=== PATIENT | female | born 1980 | race Caucasian/White ===

== ENCOUNTER 2016-08-17 17:03 | Emergency (ER) | payer OTHER ==
[2016-08-17 17:17] VITALS: RESP 16
[2016-08-17] MEDS ORDERED: SODIUM CHLORIDE 0.9% 2,000 ML IV STA (17:38)
[2016-08-17] MEDS ORDERED: PROMETHAZINE 25 MG TAB PO STA (17:39)
--- NOTE | 2016-08-17 17:48 | ED ---
Nausea/Vomiting/Diarrhea HPI - General Chief complaint: Nausea/Vomiting/Diarrhea Stated complaint: 7wks /dehydration Time Seen by Provider: 08/17/16 17:20 Source: patient Mode of arrival: ambulatory Limitations: no limitations - History of Present Illness Initial comments: The patient is a 35-year-old female who presents to ED with a chief complaint of nausea and vomiting. Patient states that her nausea and vomiting been present over the course of her . Patient states that her last menstrual period was at the beginning of June. She estimates that she is proximally 7 weeks . Patient follows with Dr. Uriostegui (sp?) as her OBGYN. The patient has been taking Reglan to control her nausea and vomiting of , but it has been ineffective at completely controlling her symptoms. She states that she followed up with her SUPERVISOR SAMPLE just 2 days ago and received an ultrasound that demonstrated evidence of an IUP with normal heart tones. Patient states that there are many smells that annoy her provoke her symptoms. She states that she has never had nausea and vomiting of as severe as with this current . Patient cites trace abdominal earning sensation in the epigastric region as well as burning throughout the throat, thought to be secondary to her frequent episodes of emesis. Patient denies any vaginal bleeding. Denies any vaginal discharge. States that she's been urinating about twice a day. - Related Data Previous Rx's Medication Instructions Recorded Nitrofurantoin Monohyd/M-Cryst 100 mg PO BID #10 cap 08/17/16 [Macrobid] Promethazine Suppository 25 mg RECTAL QID #30 supp 08/17/16 [Phenergan] Promethazine [Phenergan] 25 mg PO Q6HR #30 tablet 08/17/16 Allergies Allergy/AdvReac Type Severity Reaction Status Date / Time No Known Allergies Allergy Verified 08/17/16 17:32 Review of Systems ROS Statement: Those systems with pertinent positive or pertinent negative responses have been documented in the HPI. ROS Other: All systems not noted in ROS Statement are negative. Constitutional: Denies: fever, chills, weakness, weight change Eyes: Denies: eye pain ENT: Denies: ear pain, throat pain, dental pain, epistaxis Respiratory: Denies: cough, dyspnea, wheezes, hemoptysis Cardiovascular: Denies: chest pain, palpitations, dyspnea on exertion Endocrine: Reports: fatigue Gastrointestinal: Reports: abdominal pain (epigastric), nausea, vomiting. Denies: diarrhea, constipation, hematemesis, melena Genitourinary: Reports: other (decreased frequency of urination). Denies: urgency, dysuria, frequency, hematuria, discharge Musculoskeletal: Denies: back pain Skin: Denies: rash, lesions Neurological: Denies: headache, weakness, numbness, paresthesias Past Medical History Past Medical History: Asthma History of Any Multi-Drug Resistant Organisms: None Reported Past Surgical History: No Surgical Hx Reported Additional Past Surgical History / Comment(s): D&C 2012 Past Anesthesia/Blood Transfusion Reactions: No Reported Reaction Past Psychological History: No Psychological Hx Reported Smoking Status: Former smoker Past Alcohol Use History: None Reported Past Drug Use History: None Reported General Exam Limitations: no limitations General appearance: alert, in no apparent distress Head exam: Present: atraumatic, normocephalic Eye exam: Present: normal appearance, PERRL, EOMI. Absent: scleral icterus, conjunctival injection Pupils: Present: normal accommodation ENT exam: Present: normal exam, mucous membranes dry Neck exam: Present: normal inspection Respiratory exam: Present: normal lung sounds bilaterally. Absent: respiratory distress, wheezes, rales, rhonchi, stridor Cardiovascular Exam: Present: normal rhythm, tachycardia GI/Abdominal exam: Present: soft. Absent: distended, tenderness, guarding, rebound Extremities exam: Present: normal inspection, full ROM Back exam: Present: normal inspection, full ROM Neurological exam: Present: alert, oriented X3 Psychiatric exam: Present: normal affect, normal mood Skin exam: Present: warm, dry, intact Course Vital Signs 08/17/16 08/17/16 17:14 21:35 Temperature 98.2 F 98.6 F Pulse Rate 85 82 Respiratory 16 16 Rate Blood Pressure 119/67 108/55 O2 Sat by Pulse 99 100 Oximetry Medical Decision Making - Medical Decision Making Patient is a 35-year-old female who presents to ED with a chief complaint of nausea and vomiting. Patient is a at approximately 7 weeks of . Patient was treated with Reglan initially by her SUPERVISOR [facility]. Had an ultrasound performed yesterday that demonstrated normal heart tones. Will hydrate patient with 2 L of IV fluids here in the ED. We'll check CBC, BMP, mag. Check UA and urine cultures well. Provide patient with Phenergan to see if this helps with her symptoms. By mouth challenge after provided with this medication. 7:02 PM Patient states that she is still feeling nauseous. Will provide with a dose of Benadryl IVP. 9:[address] Chisholm, who is covering [facility] She recommended Tigan IM as well as D5LR. The patient's nausea improved prior to the time that Tigan was offered. As such, it was not given. The patient noted improvement on D5LR. Patient able to tolerate PO. The patient will be discharged home at this point in time. Will discharge patient home with prescriptions for Phenergan by mouth as well as Phenergan suppository. I counseled the patient that if she is having extreme nausea and vomiting and is unable to tolerate Phenergan PO that she can use the suppository. I am also discharging the patient with a prescription for Macrobid given that she had bacteriuria and foul-smelling urine. I have encouraged the patient to follow up with Dr. Almaguer's office within the next week for further re-evaluation. Encourage the patient that she can return to the ED should her symptoms worsen. - Lab Data Result diagrams: 08/17/16 17:48 08/17/16 17:48 Lab Results 08/17/16 08/17/16 08/17/16 Range/Units 17:48 17:48 17:48 WBC 10.8 H (3.8-10.6) k/uL RBC 4.64 (3.80-5.40) m/uL Hgb 13.6 (11.4-16.0) gm/dL Hct 38.9 (34.0-46.0) % MCV 83.7 (80.0-100.0) fL MCH 29.4 (25.0-35.0) pg MCHC 35.1 (31.0-37.0) g/dL RDW 12.7 (11.5-15.5) % Plt Count 274 (150-450) k/uL Neutrophils % 86 % Lymphocytes % 9 % Monocytes % 4 % Eosinophils % 1 % Basophils % 0 % Neutrophils # 9.2 H (1.3-7.7) k/uL Lymphocytes # 0.9 L (1.0-4.8) k/uL Monocytes # 0.4 (0-1.0) k/uL Eosinophils # 0.1 (0-0.7) k/uL Basophils # 0.0 (0-0.2) k/uL Sodium 138 (137-145) mmol/L Potassium 4.1 (3.5-5.1) mmol/L Chloride 102 (98-107) mmol/L Carbon Dioxide 24 (22-30) mmol/L Anion Gap 12 mmol/L BUN 14 (7-17) mg/dL Creatinine 0.55 (0.52-1.04) mg/dL Est GFR (MDRD) Af Amer >60 (>60 ml/min/1.73 sqM) Est GFR (MDRD) Non-Af >60 (>60 ml/min/1.73 sqM) Glucose 85 (74-99) mg/dL Calcium 9.4 (8.4-10.2) mg/dL Magnesium 2.0 (1.6-2.3) mg/dL Urine Color Yellow Urine Appearance Cloudy H (Clear) Urine pH 6.5 (5.0-8.0) Ur Specific [place] 1.020 (1.001-1.035) Urine Protein Trace H (Negative) Urine Glucose (UA) Negative (Negative) Urine Ketones 2+ H (Negative) Urine Blood Negative (Negative) Urine Nitrite Negative (Negative) Urine Bilirubin Negative (Negative) Urine Urobilinogen <2.0 (<2.0) mg/dL Ur Leukocyte Esterase Large H (Negative) Urine RBC 3 (0-5) /hpf Urine WBC 3 (0-5) /hpf Ur Squamous Epith Cells 19 H (0-4) /hpf Urine Bacteria Many H (None) /hpf Urine Mucus Many H (None) /hpf Disposition Clinical Impression: Nausea and vomiting during prior to 22 weeks gestation Disposition: HOME SELF-CARE Condition: Good Instructions: Acute Nausea and Vomiting (ED) Prescriptions: Nitrofurantoin Monohyd/M-Cryst [Macrobid] 100 mg PO BID #10 cap Promethazine [Phenergan] 25 mg PO Q6HR #30 tablet Promethazine Suppository [Phenergan] 25 mg RECTAL QID #30 supp Referrals: None,Stated [Primary Care Provider] - 1-2 days Time of Disposition: 21:22
[2016-08-17 18:14] LABS: Basophils % (A) 0 %; CH 29.4; CHCM 35.3; Eosinophils # (A) 0.1 k/uL (0-0.7); Eosinophils % (A) 1 %; HCT 38.9 % (34.0-46.0); HGB 13.6 gm/dL (11.4-16.0); Luc # (Auto) 0.13; Luc % (Auto) 1; Lymphocytes # (A) 0.9 k/uL (1.0-4.8); Lymphocytes % (A) 9 %; MCH 29.4 pg (25.0-35.0); MCHC 35.1 g/dL (31.0-37.0); MCV 83.7 fL (80.0-100.0); Mean Platelet Volume 7.3; Monocytes # (A) 0.4 k/uL (0-1.0); Monocytes % (A) 4 %; Neutrophils # (A) 9.2 k/uL (1.3-7.7); Neutrophils % (A) 86 %; RBC 4.64 m/uL (3.80-5.40); RDW 12.7 % (11.5-15.5); WBC 10.8 k/uL (3.8-10.6); WBC (Perox) 11.57
[2016-08-17 18:16] LABS: Appearance,Urine Cloudy (Clear); Bacteria,Urine Many /hpf; Bilirubin,Urine Negative (Negative); Glucose,Urine (UA) Negative (Negative); Ketones,Urine 2+ (Negative); Leukocyte Esterase,Urine Large (Negative); Mucus,Urine Many /hpf; Nitrite,Urine Negative (Negative); PH, Urine 6.5 (5.0-8.0); Particle Count 21686; Protein,Urine Trace (Negative); RBC,Urine 3 /hpf (0-5); Squamous Epithelial Cell,Urine 19 /hpf (0-4); UA Billing (MACRO vs. MICRO) MICRO; Urobilinogen,Urine <2.0 mg/dL (<2.0); WBC,Urine 3 /hpf (0-5)
[2016-08-17 18:22] LABS: Anion Gap 12 mmol/L; Blood Urea Nitrogen 14 mg/dL (7-17); Calcium 9.4 mg/dL (8.4-10.2); Carbon Dioxide 24 mmol/L (22-30); Chloride 102 mmol/L (98-107); Glucose 85 mg/dL (74-99); Non-African American GFR(MDRD) >60 (>60 ml/min/1.73 sqM); Potassium 4.1 mmol/L (3.5-5.1); Sodium 138 mmol/L (137-145)
[2016-08-17] MEDS ORDERED: MAG HYDROX/AL HYDROX/SIMETH 30 ML CUP PO STA (18:59)
[2016-08-17] MEDS ORDERED: diphenhydrAMINE 50 MG/ML 1 ML VIAL IVP STA (18:59)
[2016-08-17] MEDS ORDERED: TRIMETHOBENZAMIDE 100 MG/ML 2 ML VIAL IM STA (19:48)
[2016-08-17] MEDS ORDERED: DEXTROSE 5%-LACTATED RINGERS 1,000 ML IV SCH (20:30)
[2016-08-17 21:35] VITALS: BP 108/55; PULSE 82; TEMP 98.6
== END 2016-08-17 21:39 | disposition home or self-care (01) ==
LOC: EC 17:03
DX: O21.9 Vomiting of pregnancy, unspecified (principal); Z3A.01 Less than 8 weeks gestation of pregnancy; Z87.891 Personal history of nicotine dependence
CPT/HCPCS: 99284; 96374; 96361 ×2; 36415; 80048; 83735; 85025; 81001; 87086; J1200

== ENCOUNTER 2016-08-29 16:07 | Emergency (ER) | payer OTHER ==
[2016-08-29 16:28] VITALS: RESP 18
[2016-08-29] MEDS ORDERED: SODIUM CHLORIDE 0.9% 1,000 ML IV STA (18:00)
[2016-08-29] MEDS ORDERED: diphenhydrAMINE 50 MG/ML 1 ML VIAL IVP STA (18:00)
[2016-08-29] MEDS ORDERED: METOCLOPRAMIDE 5 MG/ML 2 ML VIAL IVP STA (18:00)
--- NOTE | 2016-08-29 18:01 | ED ---
General Adult HPI - General Chief complaint: Nausea/Vomiting/Diarrhea Stated complaint: 9 weeks /Vomiting Time Seen by Provider: 08/29/16 17:46 Source: patient, RN notes reviewed, old records reviewed Mode of arrival: ambulatory Limitations: no limitations - History of Present Illness Initial comments: Patient 35-year-old female who presents emergency room today with a chief complaint of symptoms of nausea vomiting on and off for last few weeks. She admits that she is 9 weeks . She states that she has been seen here in the emergency room for symptoms of nausea vomiting recently. She states she's having difficult time keeping anything down. She states that she's tried medicines of Zofran, Reglan, Phenergan. She states she did not try any increase today because she cannot keep them down. She denies any abdominal pain. Denies any vaginal bleeding or discharge. Denies any other complaints. Patient denies any recent fever, chills, shortness of breath, chest pain, back pain, abdominal pain, numbness or tingling, dysuria or hematuria, constipation or diarrhea, headaches or visual changes, or any other complaints. - Related Data Home Medications Medication Instructions Recorded Confirmed Albuterol Inhaler [Ventolin Hfa 1 - 2 puff INHALATION RT-Q6H PRN 08/29/16 Inhaler] Allergies Allergy/AdvReac Type Severity Reaction Status Date / Time hydrocodone AdvReac Severe Nausea & Verified 08/29/16 18:02 Vomiting Review of Systems ROS Statement: Those systems with pertinent positive or pertinent negative responses have been documented in the HPI. ROS Other: All systems not noted in ROS Statement are negative. Past Medical History Past Medical History: Asthma History of Any Multi-Drug Resistant Organisms: None Reported Past Surgical History: No Surgical Hx Reported Additional Past Surgical History / Comment(s): D&C 2013 Past Anesthesia/Blood Transfusion Reactions: No Reported Reaction Past Psychological History: No Psychological Hx Reported Smoking Status: Former smoker Past Alcohol Use History: None Reported Past Drug Use History: None Reported General Exam - General Exam Comments Initial Comments: General: The patient is awake and alert, in no distress, and does not appear acutely ill. Eye: Pupils are equal, round and reactive to light, extra-ocular movements are intact. No nystagmus. There is normal conjunctiva bilaterally. No signs of icterus. Ears, nose, mouth and throat: There are moist mucous membranes and no oral lesions. Neck: The neck is supple, there is no tenderness or JVD. Cardiovascular: There is a regular rate and rhythm. No murmur, rub or gallop is appreciated. Respiratory: Lungs are clear to auscultation, respirations are non-labored, breath sounds are equal. No wheezes, stridor, rales, or rhonchi. Gastrointestinal: Soft, non-distended, non-tender abdomen without masses or organomegaly noted. There is no rebound or guarding present. No CVA tenderness. Bowel sounds are unremarkable. Musculoskeletal: Normal ROM, no tenderness. Strength 5/5. Sensation intact. Pulses equal bilaterally 2+. Neurological: A&O x 3. CN II-XII intact, There are no obvious motor or sensory deficits. Coordination appears grossly intact. Speech is normal. Skin: Skin is warm and dry and no rashes or lesions are noted. Psychiatric: Cooperative, appropriate mood & affect, normal judgment. Limitations: no limitations Course Vital Signs 08/29/16 16:25 Temperature 98.3 F Pulse Rate 91 Respiratory 18 Rate Blood Pressure 128/60 O2 Sat by Pulse 99 Oximetry Medical Decision Making - Medical Decision Making Patient reexamined at this time shows no signs of distress. States feeling much better after IV fluids here in the emergency room. Patient was reviewed are unremarkable. Patient advised to use her medication at home as prescribed. Advised follow-up the OB over the next 2 days. Advised return to emergency room if any symptoms increase or worsen or for any other concerns. - Lab Data Result diagrams: 08/29/16 17:53 08/29/16 17:53 Lab Results 08/29/16 08/29/16 08/29/16 Range/Units 17:53 17:53 17:53 WBC 10.1 (3.8-10.6) k/uL RBC 5.03 (3.80-5.40) m/uL Hgb 14.5 (11.4-16.0) gm/dL Hct 41.0 (34.0-46.0) % MCV 81.5 (80.0-100.0) fL MCH 28.7 (25.0-35.0) pg MCHC 35.3 (31.0-37.0) g/dL RDW 12.9 (11.5-15.5) % Plt Count 316 (150-450) k/uL Neutrophils % 81 % Lymphocytes % 14 % Monocytes % 3 % Eosinophils % 2 % Basophils % 0 % Neutrophils # 8.1 H (1.3-7.7) k/uL Lymphocytes # 1.4 (1.0-4.8) k/uL Monocytes # 0.3 (0-1.0) k/uL Eosinophils # 0.2 (0-0.7) k/uL Basophils # 0.0 (0-0.2) k/uL Sodium 138 (137-145) mmol/L Potassium 4.1 (3.5-5.1) mmol/L Chloride 101 (98-107) mmol/L Carbon Dioxide 24 (22-30) mmol/L Anion Gap 13 mmol/L BUN 12 (7-17) mg/dL Creatinine 0.47 L (0.52-1.04) mg/dL Est GFR (MDRD) Af Amer >60 (>60 ml/min/1.73 sqM) Est GFR (MDRD) Non-Af >60 (>60 ml/min/1.73 sqM) Glucose 82 (74-99) mg/dL Calcium 10.1 (8.4-10.2) mg/dL Urine Color Yellow Urine Appearance Cloudy H (Clear) Urine pH 7.5 (5.0-8.0) Ur Specific [place] 1.014 (1.001-1.035) Urine Protein Negative (Negative) Urine Glucose (UA) Negative (Negative) Urine Ketones Negative (Negative) Urine Blood Negative (Negative) Urine Nitrite Negative (Negative) Urine Bilirubin Negative (Negative) Urine Urobilinogen <2.0 (<2.0) mg/dL Ur Leukocyte Esterase Negative (Negative) Urine WBC 3 (0-5) /hpf Ur Squamous Epith Cells 6 H (0-4) /hpf Amorphous Sediment Few H (None) /hpf Urine Bacteria Rare H (None) /hpf Hyaline Casts 1 (0-2) /lpf Urine Mucus Rare H (None) /hpf Disposition Clinical Impression: Hyperemesis gravidarum Disposition: HOME SELF-CARE Condition: Good Instructions: Hyperemesis Gravidarum (ED) Additional Instructions: Please use medication as discussed. Please follow-up with [facility] in the next 2 days of symptoms have not improved. Please return to emergency room if the symptoms increase or worsen or for any other concerns. Time of Disposition: 18:46
[2016-08-29 18:11] LABS: Basophils % (A) 0 %; CH 29.3; Eosinophils # (A) 0.2 k/uL (0-0.7); Eosinophils % (A) 2 %; HDW 2.58; HGB 14.5 gm/dL (11.4-16.0); Luc # (Auto) 0.08; Luc % (Auto) 1; Lymphocytes # (A) 1.4 k/uL (1.0-4.8); Lymphocytes % (A) 14 %; MCH 28.7 pg (25.0-35.0); MCHC 35.3 g/dL (31.0-37.0); MCV 81.5 fL (80.0-100.0); Mean Platelet Volume 6.3; Monocytes # (A) 0.3 k/uL (0-1.0); Monocytes % (A) 3 %; Neutrophils # (A) 8.1 k/uL (1.3-7.7); Neutrophils % (A) 81 %; RBC 5.03 m/uL (3.80-5.40); RDW 12.9 % (11.5-15.5); WBC 10.1 k/uL (3.8-10.6); WBC (Perox) 9.97
[2016-08-29 18:14] LABS: Amorphous Sediment,Urine Few /hpf; Appearance,Urine Cloudy (Clear); Bacteria,Urine Rare /hpf; Bilirubin,Urine Negative (Negative); Glucose,Urine (UA) Negative (Negative); Ketones,Urine Negative (Negative); Leukocyte Esterase,Urine Negative (Negative); Mucus,Urine Rare /hpf; Nitrite,Urine Negative (Negative); PH, Urine 7.5 (5.0-8.0); Particle Count 27709; Protein,Urine Negative (Negative); Specific Gravity,Urine 1.014 (1.001-1.035); Squamous Epithelial Cell,Urine 6 /hpf (0-4); UA Billing (MACRO vs. MICRO) MICRO; Urobilinogen,Urine <2.0 mg/dL (<2.0); WBC,Urine 3 /hpf (0-5)
[2016-08-29 18:19] LABS: Anion Gap 13 mmol/L; Blood Urea Nitrogen 12 mg/dL (7-17); Calcium 10.1 mg/dL (8.4-10.2); Carbon Dioxide 24 mmol/L (22-30); Chloride 101 mmol/L (98-107); Glucose 82 mg/dL (74-99); Non-African American GFR(MDRD) >60 (>60 ml/min/1.73 sqM); Potassium 4.1 mmol/L (3.5-5.1); Sodium 138 mmol/L (137-145)
[2016-08-29 19:20] VITALS: BP 118/68; PULSE 89; TEMP 98.4
== END 2016-08-29 19:24 | disposition home or self-care (01) ==
LOC: EC 16:07
DX: O21.0 Mild hyperemesis gravidarum (principal); Z3A.09 9 weeks gestation of pregnancy; Z87.891 Personal history of nicotine dependence; Z88.5 Allergy status to narcotic agent
CPT/HCPCS: 36415; 80048; 85025; 81001; 87086; 99284; 96374; 96375; 96361; J1200; J2765

== ENCOUNTER → 2016-09-21 | Outpatient (CLI) | payer OTHER ==
--- NOTE | 2016-09-21 16:31 | US ---
EXAMINATION TYPE: US OB <= 14 wk fetus DATE OF EXAM: 09/21/2016 4:16 PM COMPARISON: NONE CLINICAL HISTORY: spotting and Preg O46.91. Spotting and cramping, 11, para 4, miscarriage 6 EXAM PERFORMED: Transabdominal (TA) EXAM MEASUREMENTS: GESTATIONAL AGE / DATING Physician Established: (12 weeks/1 days) EDC: 04/04/2017 Dates by LMP: (12 weeks/1 days) EDC: 04/04/2017 Dates by First Scan: This is 1st scan Dates by Current Scan for: (13 weeks/2 days) EDC: 03/27/2017 MATERNAL ANATOMY Uterus: 15.2 x 7.8 x 9.2cm, anteverted Right Ovary: 4.2 x 2.4 x 1.7cm Left Ovary: 2.5 x 1.5 x 2.9cm Post CDS / Adnexa: wnl Presence of free fluid: no Presence of corpus luteal cyst: not seen at this time Presence of subchorionic bleed: no GESTATION / SURVEY CRL: 7.1cm (13 weeks/2 days) Yolk Sac (normal less than 6mm): not seen at this time Heart Rate: 151 bpm Rhythm: Normal IUP: Viable IUP Nuchal Translucency 10-14wks (normal less than 3mm): 2.1mm Date of LMP: 06/28/2016 Beta HcG (if available): Not available at this time Viable single IUP measuring 13 weeks 2 days with a heart rate of 151bpm and an estimated delivery zeferino e of 03/27/2017. IMPRESSION: 1. Single intrauterine gestation estimated at 13 weeks 2 days gestation based on the current ultrasou nd measurements. This would've a calculated EDC of 03/27/2017. Correlate this with her physician lenard loya EDC of 04/04/2017. 2. Cardiac activity measures 151 bpm.
== END | disposition home or self-care (01) ==
LOC: RADUSWWP 15:51
PROVIDERS: ATTEND Obstetrics & Gynecology
DX: O46.91 Antepartum hemorrhage, unspecified, first trimester (principal); Z3A.13 13 weeks gestation of pregnancy
CPT/HCPCS: 76801; 76813

== ENCOUNTER 2017-01-11 18:40 | Outpatient (CLI) | payer OTHER ==
[2017-01-11 19:44] LABS: Glucose,Whole Blood 77 mg/dL (75-99)
[2017-01-11 20:07] VITALS: BP 132/80; PULSE 93; RESP 18; TEMP 36.1
--- NOTE | 2017-03-18 21:44 | P.MSEPDOC ---
Presenting Problems - Arrival Data Date of Arrival on Unit: 01/11/17 Time of Arrival on Unit: 18:56 Mode of Transport: Ambulatory - Complaint OB-Reason for Admission/Chief Complaint: Other Comment: cramping and pain Medical History - Information : 11 Para: 4 Term: 4 : 0 Abortions: Spontaneous or Elective: 6 Number of Living Children: 4 - Gestational Age Gestational Age by RAUL (wks/days): 29 Weeks and 2 Days Review of Systems - Review of Systems Constitutional: No problems Breast: No problems ENT: No problems Cardiovascular: No problems Respiratory: No problems Gastrointestinal: No problems Genitourinary: No problems Musculoskeletal: No problems Neurological: No problems Skin: No problems Vital Signs - Temperature Temperature: 36.1 F - Pulse Right Brachial Pulse Rate: 93 Pulse Assessment Method: Automatic Cuff - Respirations Respiratory Rate: 18 Oxygen Delivery Method: Room Air - Blood Pressure Right Arm Blood Pressure: 132/80 Blood Pressure Mean: 97 Blood Pressure Source: Automatic Cuff Medical Screen Scoring (Pre) - Cervical Exam Dilation: 0 cm = 0 Membranes: Intact - Uterine Contractions Frequency: N/A Duration: N/A Intensity: N/A - Maternal Vital Signs Maternal Temperature: N/A Maternal Blood Pressure: N/A Signs of Preeclampsia: N/A Maternal Respirations: N/A - Assessment Baseline FHR: 145 Heart Rate - NICHD Category: Category I (Normal) = 0 NST: Reactive Position: N/A - Total Score Total Score (Pre): 0 - Level of Risk Level of Risk: N/A Physician Notification (Pre) - Physician Notified Physician Notified Date: 01/11/17 Physician Notified Time: 19:42 Physician/Practitioner Notifed:: Dr. Samayoa Spoke With: Dr. Samayoa New Order Received: Yes - Notification Comment Comment: discharge pt home, follow up in office Disposition - Disposition OB Disposition: Physician follow up in office, Discharge to home, Written follow up instructions reviewed Discharge Date: 01/11/17 Discharge Time: 19:50 I agree with the RN Medical Screening Exam: Yes Risk & Benefit of care provided described in d/c instruction: Yes Diagnosis: FALSE LABOR, UNSPECIFIED
== END 2017-01-11 19:50 | disposition home or self-care (01) ==
LOC: FBPOP 18:40
PROVIDERS: ATTEND Obstetrics & Gynecology Obstetrics
DX: O47.9 False labor, unspecified (principal); Z3A.29 29 weeks gestation of pregnancy
CPT/HCPCS: 59025; G0463; 99213

== ENCOUNTER 2018-12-10 05:50 | Inpatient (IN) | payer OTHER ==
[2018-12-10] MEDS ORDERED: OXYTOCIN 10 UNIT/ML 1 ML VIAL IM PRN (05:59)
[2018-12-10] MEDS ORDERED: LIDOCAINE 0.5% (PF) 5 MG/ML (50 ML SDV) SQ PRN (05:59)
[2018-12-10] MEDS ORDERED: CARBOPROST TROMETHAMINE 250 MCG/ML 1 ML AMP IM PRN (05:59)
[2018-12-10] MEDS ORDERED: METHYLERGONOVINE 0.2 MG/ML 1 ML AMP IM PRN (05:59)
[2018-12-10] MEDS ORDERED: TERBUTALINE 1 MG/ML VIAL SQ PRN (05:59)
[2018-12-10] MEDS ORDERED: OXYTOCIN 30 UNITS/500 ML NS 30 UNIT in SALINE 1 500ML.BAG IV SCH (06:00)
[2018-12-10 06:06] VITALS: BMI 27.1
[2018-12-10] MEDS: LACTATED RINGERS 1,000 ML IV SCH ×2 (06:09→10:30)
[2018-12-10 06:25] LABS: Basophils % (A) 0 %; Eosinophils # (A) 0.1 k/uL (0-0.7); Eosinophils % (A) 1 %; HGB 10.3 gm/dL (11.4-16.0); Lymphocytes # (A) 1.9 k/uL (1.0-4.8); Lymphocytes % (A) 19 %; MCH 25.3 pg (25.0-35.0); MCHC 32.1 g/dL (31.0-37.0); MCV 78.9 fL (80.0-100.0); Mean Platelet Volume 6.7; Monocytes # (A) 0.5 k/uL (0-1.0); Monocytes % (A) 5 %; Neutrophils # (A) 7.1 k/uL (1.3-7.7); Neutrophils % (A) 73 %; Platelet Count 311 k/uL (150-450); RBC 4.06 m/uL (3.80-5.40); RDW 13.9 % (11.5-15.5); WBC 9.7 k/uL (3.8-10.6)
[2018-12-10] MEDS ORDERED: fentaNYL (PF) 50 MCG/ML 5 ML AMP ONE (10:28)
[2018-12-10] MEDS ORDERED: SODIUM CHLORIDE 0.9% 100 ML BAG ONE (10:28)
[2018-12-10] MEDS ORDERED: ROPIVACAINE 5MG/ML 20ML VIAL ONE (10:28)
[2018-12-10] MEDS ORDERED: HYDROCORTISONE 2.5% RECTAL CREAM 30 GM TUBE RECTAL PRN (12:54)
[2018-12-10] MEDS ORDERED: diphenhydrAMINE 50 MG CAP PO PRN (12:54)
[2018-12-10] MEDS ORDERED: BENZOCAINE/MENTHOL SPRAY 1 GM/SPRAY AEROSOL TOPICAL PRN (12:54)
[2018-12-10] MEDS ORDERED: MEASLES-MUMPS-RUBELLA VACC/PF 12,500 UNIT/0.5 ML VIAL SQ ONE (12:54)
[2018-12-10] MEDS ORDERED: diphenhydrAMINE 50 MG/ML 1 ML VIAL IVP PRN ×2 (12:54)
[2018-12-10] MEDS ORDERED: WITCH HAZEL 1 EACH MED..PAD TOPICAL PRN (12:54)
[2018-12-10] MEDS ORDERED: diphenhydrAMINE 25 MG CAP PO PRN (12:54)
[2018-12-10] MEDS ORDERED: HYDROcodone/APAP 5-325MG 1 EACH TAB PO PRN (12:54)
[2018-12-10] MEDS ORDERED: LANOLIN CREAM 5 GM TUBE TOPICAL PRN (12:54)
[2018-12-10] MEDS ORDERED: SIMETHICONE 80 MG CHEWABLE PO PRN (12:54)
[2018-12-10] MEDS ORDERED: ACETAMINOPHEN TAB 325 MG TAB PO PRN (12:54)
[2018-12-10] MEDS ORDERED: ZOLPIDEM 5 MG TAB PO PRN (12:54)
--- NOTE | 2018-12-10 12:54 | P.HPOB ---
History of Present Illness H&P Date: 12/10/18 Chief Complaint: IUP @ 39 2/7 weeks This is a 38 yo at 39 2/7 weeks that presents for induction of labor. she has had routine PNC with myself, initial US revealed a small head circumference. she was seen at [facility] and they felt it was a low normal measurement, but had no concerns. overall care has been uncomplicated she has been feeling good movement, occasional ctx, no VB, or LOF. on blood work, blood type A pos rubella non immune HBsAG negative RPR NR HIV neg GBS neg Review of Systems Constitutional: Denies chills, Denies fatigue, Denies fever Ears, nose, mouth and throat: Denies headache Cardiovascular: Reports leg edema Respiratory: Denies dyspnea Gastrointestinal: Denies constipation, Denies diarrhea, Denies nausea, Denies vomiting Genitourinary: Reports Past Medical History Past Medical History: Asthma Additional Past Medical History / Comment(s): Gestational Diabetes- diet controlled History of Any Multi-Drug Resistant Organisms: None Reported Past Surgical History: No Surgical Hx Reported Additional Past Surgical History / Comment(s): D&C 2012, [place] Past Anesthesia/Blood Transfusion Reactions: No Reported Reaction Past Psychological History: No Psychological Hx Reported Smoking Status: Former smoker Past Alcohol Use History: None Reported Past Drug Use History: None Reported - Past Family History Mother Family Medical History: Asthma, Coronary Artery Disease (CAD), Seizure Disorder Additional Family Medical History / Comment(s): "flappy heart valve" Father Family Medical History: Coronary Artery Disease (CAD) Medications and Allergies Home Medications Medication Instructions Recorded Confirmed Type Albuterol Inhaler [Ventolin Hfa 1 - 2 puff INHALATION RT-Q6H PRN 08/29/16 12/10/18 History Inhaler] Pnv,Calcium 72/Iron/Folic Acid 1 tab PO DAILY 01/11/17 12/10/18 History [ Plus Tablet] Allergies Allergy/AdvReac Type Severity Reaction Status Date / Time hydrocodone AdvReac Intermediate Nausea & Verified 12/10/18 05:58 Vomiting Exam Osteopathic Statement: *. No significant issues noted on an osteopathic structural exam other than those noted in the History and Physical/Consult. Vital Signs Temp Pulse Resp BP Pulse Ox 12/10/18 12:34 96.7 F L 91 18 123/56 12/10/18 06:01 97.2 F L 88 16 140/83 100 Intake and Output 12/09/18 12/10/18 12/10/18 22:59 06:59 14:59 Other: # Voids 1 Weight 71.668 kg targeted physical exam done on this date. in general this is a well nourished well developed female in [facility]. she is noted to have non labored breathing and heart has a RRR. abdomen is gravid and appropriate for GA. FHTs are category 1 and she has irregular ctx on admission. SVE 3/-3 AROM for clear fluid is tolerated well by pt. Results Result Diagrams: 12/10/18 06:05 Abnormal Lab Results - Last 24 Hours (Table) 12/10/18 Range/Units 06:05 Hgb 10.3 L (11.4-16.0) gm/dL Hct 32.0 L (34.0-46.0) % MCV 78.9 L (80.0-100.0) fL Assessment and Plan (1) Elective induction of labor planned Current Visit: No Status: Acute Code(s): [id number] - SNOMED Code(s): 40 4334821 (2) Term Current Visit: No Status: Acute Code(s): Z34.80 - ENCOUNTER FOR SUPRVSN OF N ORMAL , UNSP TRIMESTER SNOMED Code(s): 23671180 Plan: patient is admitted for pitocin induction of labor. she elects epidural for pa in control. anticipate
[2018-12-10] MEDS ORDERED: OXYTOCIN 20 UNITS/1000 ML NS 1,000 ML IV SCH (13:00)
--- NOTE | 2018-12-10 13:03 | P.PROBDLV ---
Vaginal Delivery Note - . Vaginal Delivery Note: This pleasant that presents for EIOL. she has been receiving routine PNC with myself. she was admitted to labor and delivery for pitocin induction of labor. once regular contractions were noted amniotomy was preformed and clear fluid is obtained. Pt progressed to 4 cms becaming uncomfortable and requested epidural. This was placed by the anesthesia department. she progressed to complete and began pushing. she was placed in a modified jayde position and with good maternal effort she had a normal spontaneous vaginal delivery of a viable female infant at 1223, weight of 7-4 and apgars of 9-9 at 1 and 5 minutes respectively. After a 2 minute delay the umbilical cord was doubly clamped and cut. the placenta was delivered spontaneous intact with a 3VC was noted. the vaginal vault was inspected and no lacerations were noted. the uterus was firm and below the umbilicus. EBL 300cc Patient and infant tolerated delivery well and are resting comfortably
[2018-12-10] MEDS: IBUPROFEN 600 MG TAB PO PRN (15:59)
[2018-12-11] MEDS: IBUPROFEN 600 MG TAB PO PRN ×2 (00:21→13:41)
[2018-12-11] MEDS: SENNOSIDES-DOCUSATE SODIUM 1 EACH TAB PO SCH ×2 (04:21→12:13)
[2018-12-11] MEDS: LACTATED RINGERS 1,000 ML IV SCH (04:21)
[2018-12-11 08:07] LABS: Basophils % (A) 0 %; Eosinophils # (A) 0.3 k/uL (0-0.7); Eosinophils % (A) 2 %; HCT 27.8 % (34.0-46.0); Lymphocytes # (A) 2.2 k/uL (1.0-4.8); Lymphocytes % (A) 17 %; MCH 24.8 pg (25.0-35.0); MCHC 30.7 g/dL (31.0-37.0); MCV 80.6 fL (80.0-100.0); Mean Platelet Volume 7.4; Monocytes # (A) 0.6 k/uL (0-1.0); Monocytes % (A) 5 %; Neutrophils # (A) 9.4 k/uL (1.3-7.7); Neutrophils % (A) 74 %; Platelet Count 311 k/uL (150-450); RBC 3.45 m/uL (3.80-5.40); RDW 14.1 % (11.5-15.5); WBC 12.7 k/uL (3.8-10.6)
[2018-12-11 08:17] LABS: HGB 8.5 gm/dL (11.4-16.0)
--- NOTE | 2018-12-11 08:32 | P.DS ---
Providers Date of admission: 12/10/18 05:50 Expected date of discharge: 12/11/18 Attending physician: Alia Herrera Primary care physician: Stated None - Discharge Diagnosis(es) (1) Elective induction of labor planned Current Visit: No Status: Acute (2) Term Current Visit: No Status: Acute (3) Normal spontaneous vaginal delivery Current Visit: No Status: Acute Hospital Course: This is a pleasant 38-year-old 12 para 5065 that presented for elective induction of labor. Patient was 39-2/7 weeks at the time of induction. Patient was admitted Pitocin induction of labor was begun. Once regular contractions were noted amniotomy was performed. Patient progressed through labor eventually becoming uncomfortable and requesting epidural placement. Epidural was placed by anesthesia without difficulty. Patient progressed to complete began pushing and had a normal spontaneous vaginal delivery of a viable female at 1223, weight of 7 lbs. 4 oz. with Apgars of 9 and 9 at one and 5 minutes respectively. Patient did not sustain any vaginal lacerations during the delivery. Patient's course has been uneventful. She is a bleeding and voiding without difficulty. She is tolerating a regular diet without nausea or vomiting. She states her pain is well-controlled and she would like discharge home at 24 hours. Plan - Discharge Summary New Discharge Prescriptions: No Action Albuterol Inhaler [Ventolin Hfa Inhaler] 1 - 2 puff INHALATION RT-Q6H PRN PRN Reason: Shortness Of Breath Pnv,Calcium 72/Iron/Folic Acid [ Plus Tablet] 1 tab PO DAILY Discharge Medication List Albuterol Inhaler [Ventolin Hfa Inhaler] 1 - 2 puff INHALATION RT-Q6H PRN 08/29/16 [History] Pnv,Calcium 72/Iron/Folic Acid [ Plus Tablet] 1 tab PO DAILY 01/11/17 [History] Follow up Appointment(s)/Referral(s): Alia Herrera DO [Doctor of Osteopathic Medicine] - 4 Weeks Patient Instructions/Handouts: Vaginal Delivery (DC), Vaginal Delivery (GEN) Discharge Disposition: HOME SELF-CARE
[2018-12-11 09:18] VITALS: BP 109/67; PULSE 82; RESP 14; TEMP 98.1
== END 2018-12-11 14:00 | disposition home or self-care (01) | DRG 807 ==
LOC: 4FBP 05:50
PROVIDERS: ADMIT Obstetrics & Gynecology Obstetrics; ATTEND Obstetrics & Gynecology Obstetrics
PROC: 10E0XZZ Delivery of Products of Conception, External Approach (ICD-10-PCS; principal; 2018-12-10)
PROC: 10907ZC Drainage of Amniotic Fluid, Therapeutic from Products of Conception, Via Natural or Artificial Opening (ICD-10-PCS; 2018-12-10)
PROC: 3E033VJ Introduction of Other Hormone into Peripheral Vein, Percutaneous Approach (ICD-10-PCS; 2018-12-10)
DX: O99.52 Diseases of the respiratory system complicating childbirth (principal); J45.909 Unspecified asthma, uncomplicated; Z37.0 Single live birth; Z3A.39 39 weeks gestation of pregnancy; Z86.32 Personal history of gestational diabetes; Z87.891 Personal history of nicotine dependence; Z88.5 Allergy status to narcotic agent; Z82.0 Family history of epilepsy and other diseases of the nervous system; Z82.49 Family history of ischemic heart disease and other diseases of the circulatory system; Z82.5 Family history of asthma and other chronic lower respiratory diseases
CPT/HCPCS: 85025; 86850; 86900; 86901; 90471; 90707